=== PATIENT | female | born 2000 | race Hispanic/Latino ===

== ENCOUNTER 2024-04-19 21:28 | Emergency (ER) | payer SELFPAY ==
[2024-04-19] VITALS (7 sets, daily range): BP systolic 97–121; BP diastolic 64–80
[~2024-04-19] VITALS: Ht 152.4 cm; Wt 70.0 kg
[~2024-04-19 21:28] MED LIST: AUGMENTIN400 MG/5 M OR; NO HOME MEDS
[2024-04-19] MEDS ORDERED: KETOROLAC TROMETHAMINE 30 MG/ML SDV IV ONE (21:50)
[2024-04-19] MEDS ORDERED: ACETAMINOPHEN 500 MG TAB PO ONE (21:50)
[2024-04-19] MEDS ORDERED: SODIUM CHLORIDE 0.9% 1,000 ML IV ONE (21:50)
[2024-04-19 22:11] LABS: BASO% 0.3 % (0-3); EOS% 0.8 % (0-8); HEMATOCRIT 35.5 % (37.0-47.0); HEMOGLOBIN 10.7 g/dl (12.0-16.0); IMMATURE GRANULOCYTES 0.1 % (0.0-5.0); LYMPH% 34.5 % (15-41); MEAN CELL VOLUME 75.4 fL CALC (80.0-100.0); MEAN CORPUSCULAR HGB 22.7 pG CALC (26.0-32.0); MEAN CORPUSCULAR HGB CONC 30.1 g/dL CAL (32.0-36.0); MONO% 7.3 % (2-13); NEUT# 5.74 thou/uL (2.00-7.15); RED BLOOD COUNT 4.71 mill/uL (4.20-5.60); RED CELL DISTRI WIDTH 15.9 % (11.5-15.5)
[2024-04-19 22:40] LABS: ALBUMIN 4.7 g/dL (3.2-5.0); ALKALINE PHOSPHATASE 98 u/l (38-126); ANION GAP 12 (6-22 (CALC)); BILIRUBIN, TOTAL 0.4 mg/dL (0.02-1.3); BUN 11 mg/dL (7-17); BUN/CREATININE RATIO 17 (12-20 (CALC)); CARBON DIOXIDE 25 mmol/l (22-30); CHLORIDE 108 mmol/l (95-108); CREATININE 0.7 mg/dL (0.5-1.0); ESTIMATED GFR 125 ML/MIN (>=90 (CALC)); LIPASE 141 u/l (23-300); POTASSIUM 3.7 mmol/l (3.5-5.1); SGOT/AST 25 u/l (14-36); SODIUM 140 mmol/l (137-146); TOTAL PROTEIN 8.8 g/dL (6.3-8.2)
[2024-04-19] MEDS ORDERED: TORADOL PO (23:00)
== END 2024-04-19 23:30 | disposition home or self-care (01) | DRG 313 ==
LOC: ED 21:28
PROVIDERS: Family Medicine
DX: R07.89 Other chest pain (principal)